=== PATIENT | male | born 1985 | race Caucasian/White ===

== ENCOUNTER → 2021-08-08 19:46 | Outpatient (CLI) | payer OTHER, SELFPAY ==
--- NOTE | 2021-08-08 | DI.MRI.S_ITS ---
PROCEDURE: MR CERVICAL SPINE WO CON INDICATIONS: Cervicalgia TECHNIQUE: Noncontrast sagittal T1 spin echo and T2 fast spin echo, sagittal STIR, foraminal oblique sagittal T2 fast spin echo, and axial gradient echo or T2 fast spin echo through the cervical spine. COMPARISON: None. FINDINGS: Image quality: Excellent. Alignment and Curvature: There is normal bony alignment. There is mild reversal normal cervical spine curvature. Bone Marrow: Modic type 1 reactive endplate changes noted adjacent to the C5-C6 disc. Spinal Cord: Visualized spinal cord has normal size and signal. No cerebellar tonsillar herniation. Paraspinous Soft Tissues: No paravertebral masses. Prevertebral soft tissues are normal in thickness. C2-C3: Loss of disc signal. Mild left facet hypertrophy. No central stenosis. Mild left neural foraminal narrowing. No neural compression. C3-C4: Loss of disc signal. No central stenosis. Mild left neural foraminal narrowing. No neural compression. C4-C5: Loss of disc signal. Minimal, diffuse disc bulge. No central stenosis. No neural foraminal narrowing. No neural compression. C5-C6: Loss of disc signal and height. Mild to moderate diffuse disc bulge. Moderate to severe narrowing of the central canal without compression of the cervical spinal cord. Severe right and mild left uncovertebral joint hypertrophy. Severe right and moderate left neural foraminal narrowing with compression of the exiting right C6 nerve root. C6-C7: Loss of disc signal. Moderate, diffuse disc bulge. Moderate narrowing of the central canal. Mild right and moderate left uncovertebral joint hypertrophy. Moderate right and severe left neural foraminal narrowing with compression of the exiting left C7 nerve root. C7-T1: Normal appearance. IMPRESSION: 1. Multilevel degenerative disc disease. 2. Multilevel uncovertebral arthropathy. 3. Moderate to severe C5-C6 central canal narrowing. Moderate C6-C7 central canal narrowing. 4. Severe right C5-C6 neural foraminal narrowing with compression of the exiting right C6 nerve root. Severe left C6-C7 neural foraminal narrowing with compression of the exiting left C7 nerve root. Dictated by: Yolanda Gregory MD, PhD on 08/09/2021 at 11:18 Approved by: Yolanda Gregory MD, PhD on 08/09/2021 at 11:28
== END ==
DX: M50.322 Other cervical disc degeneration at C5-C6 level (principal); M47.812 Spondylosis without myelopathy or radiculopathy, cervical region; M48.02 Spinal stenosis, cervical region
CPT/HCPCS: 72141